=== PATIENT | male | born 1995 | race Caucasian/White ===

== ENCOUNTER 2021-10-18 08:36 | Outpatient (CLI) | payer OTHER, SELFPAY ==
--- NOTE | ~2021-10-18 | NM_ITS ---
EXAMINATION: NM parathyroid w imaging DATE: 10/18/2021 12:35 INDICATION: Hypercalcemia. Elevated parathyroid hormone level. TECHNIQUE: 20.2 mCi Tc99m tetrofosmin (Myoview) was administered by intravenous route. Anterior image s of the neck were obtained at 10 minutes and 2 hours. Additional delayed SPECT images were obtained in axial, sagittal and coronal planes. COMPARISON: None. FINDINGS/IMPRESSION: Small focus of persistent uptake in the superior mediastinum consistent with parathyroid adenoma whic h is located a short distance inferior, lateral and deep to the lower pole of the right thyroid. No o ther suspicious foci of delayed uptake identified. Reviewed, dictated and finalized at location A. /[employer]
== END 2021-10-18 08:37 | disposition home or self-care (01) ==
LOC: ANHIMG 08:43
PROVIDERS: PCP Emergency Medicine; Visit Provider Emergency Medicine
DX: E83.52 Hypercalcemia (principal)
CPT/HCPCS: 78070; A9500

== ENCOUNTER 2022-05-03 23:55 | Emergency (ER) | payer OTHER, SELFPAY ==
[2022-05-04] VITALS: BP 146/77; PULSE 64; RESP 18; TEMP 36.3; O2SAT 100
--- NOTE | 2022-05-04 00:10 | ECG_ITS ---
Measurements Intervals [place] Rate: 64 P: 26 RI: 149 QRS: 53 QRSD: 103 T: 29 QT: 381 QTc: 396 Interpretive Statements SINUS RHYTHM WITH SINUS ARRHYTHMIA BASELINE ARTIFACT- I, AVR, AVL NORMAL ECG Electronically Signed On 05-04-2022 6:58:38 CDT by Angelo Felipe D.O.
--- NOTE | 2022-05-04 01:31 | ED.ARRPALP ---
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 He is nervous that this may be abnormal and have something to with low calcium, even though he did have his calcium levels checked in the last week and was not found to be grossly abnormal. Denies any chest pain, lightheadedness, nausea or vomiting, or any other symptoms, he just feels anxious. Related Data Home Medications Medication Instructions Recorded Confirmed ibuprofen 800 mg tablet mg 05/04/22 Allergies Allergy/AdvReac Type Severity Reaction Status Date / Time No Known Allergies Allergy Verified 05/04/22 01:04 Review of Systems Review of Systems: CONST: No fever. HEENT: Incision healing well C/V: No chest pain RESP: No difficulty breathing GI: No nausea vomiting : No dysuria. M/S: No joint pain. SKIN: No rash. NEURO: Occasional tingling bilateral hands but not currently PSYCH: Anxious PMFSH Surgical History Surgical History (Updated 05/04/22 @ 04:51 by Melanie Sheldon MD) H/O parathyroidectomy Social History Social History (Updated 05/04/22 @ 04:51 by Melanie Sheldon MD) Smoking status: Never smoker Exam Narrative: EXAMINATION OF ORGAN SYSTEMS/BODY AREAS: Constitutional: Vital signs per nursing GENERAL: Resting comfortably in bed, no acute distress HEAD: Normal with no signs of head trauma. EYES: EOMI, conjunctiva normal ENT: Hearing grossly intact LUNGS: Nonlabored breathing. HEART: [Regular rate and rhythm] ABD: No distention EXT: Normal range of motion SKIN: [No rashes or lesions.] NEURO: [Alert and oriented x 3. No gross focal sensory or strength deficits.] PSYCH: Normal affect Course Vital Signs Vital signs: Vital Signs Temperature 97.4 F L 05/04/22 00:00 Pulse Rate 64 05/04/22 00:00 Respiratory Rate 18 05/04/22 00:00 Blood Pressure 146/77 H 05/04/22 00:00 Pulse Oximetry 100 05/04/22 00:00 Oxygen Delivery Room Air 05/04/22 00:00 Temperature 97.4 F L 05/04/22 00:00 Pulse Rate 57 L 05/04/22 01:51 Respiratory Rate 18 05/04/22 01:51 Blood Pressure 130/78 05/04/22 01:51 Pulse Oximetry 99 05/04/22 01:51 Oxygen Delivery Room Air 05/04/22 00:00 MDM - Arrhythmia/Palpitations MDM Narrative Medical decision making narrative: 26-year-old male presenting with concern that his heart rate was too low, vital signs normal here, EKG obtained which is unremarkable, with normal QTC and no signs of hypocalcemia, I have reassured the patient as he is asymptomatic and has a normal calcium and normal EKG, I have low concern for any issues. 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 Patient is agreeable to this, he has follow-up with his doctor next week, he is stable for discharged home. ECG Data EKG #1: Interpretation: EKG - 12-Lead: Performed at 0016. Interpreted by me. [Sinus rhythm]. Rate 64. [Normal] axis. MA-interval [normal]. QRS duration [normal]. QTc [normal]. [No ST segment elevation or depression]. [T-wave normal]. Impression: No EKG evidence of acute ischemia or dysrhythmia. Discharge Plan Discharge Clinical Impression: Anxiety, Normal ECG Patient Disposition: Home, Self-Care Condition: Stable Instructions: Antibiotic Form, Bradycardia (ED) Additional Instruct
[2022-05-04 01:51] VITALS: BP 130/78; PULSE 57; RESP 18; O2SAT 99
== END 2022-05-04 01:52 | disposition home or self-care (01) ==
LOC: ANHED 05-04 01:45
PROVIDERS: Emergency Provider Emergency Medicine; PCP Emergency Medicine
DX: F41.9 Anxiety disorder, unspecified (principal); E89.2 Postprocedural hypoparathyroidism
CPT/HCPCS: 93005; 99283

== ENCOUNTER 2025-03-31 16:50 | Observation (INO) | payer OTHER, SELFPAY ==
[2025-03-31] VITALS (20 sets, daily range): BP systolic 126–146; BP diastolic 71–84; PULSE 94–134; RESP 13–30; TEMP 36.8; O2SAT 81–100; BMI 25.7
--- NOTE | ~2025-03-31 | CT_ITS ---
EXAMINATION: CTA chest PE protocol DATE: 03/31/2025 20:42 CDT INDICATION: Elevated d-dimer TECHNIQUE: Computed tomographic angiography (CTA) of the chest was performed with 100 mL Omnipaque-35 0 intravenous contrast. The dose-length product was 303 mGy-cm. Maximum intensity projection 3D-recon structions of the aorta and other arteries were constructed by the technologist on a separate worksta tion. Examination is somewhat limited secondary to tachypnea and motion artifact from coughing. COMPARISON: None. FINDINGS/OBSERVATIONS: PULMONARY ARTERIES: No filling defect is identified within the main or proximal pulmonary artery. The main pulmonary artery is not enlarged. THORACIC AORTA: No aneurysmal dilatation or dissection is present. The great vessels are intact LUNGS: Small bilateral pleural effusions, left greater than right, with bibasilar atelectasis. No con solidation is appreciated MEDIASTINUM: No morphologically suspicious or pathologically enlarged lymph nodes are identified with in the mediastinum or bilateral axilla. BONES OF THE CHEST: No acute fracture. No significant degenerative disease. No lytic or blastic lesions. HEART: The heart is of normal size, with a small pericardial effusion. IMPRESSION: No pulmonary embolus. No thoracic aortic dissection. Small bilateral pleural effusions, left greater than right, with bibasilar atelectasis, as detailed a lilly. Reviewed, dictated and finalized at location A. IMPRESSION: No pulmonary embolus. No thoracic aortic dissection. Small bilateral pleural effusions, left greater than right, with bibasilar atel ectasis, as detailed above.
--- NOTE | ~2025-03-31 | XR_ITS ---
EXAM/PROCEDURE: XR chest 2V - 04/01/2025 8:05 CDT HISTORY: 29 years old Male with pleural effusions TECHNIQUE: Two view(s) of the chest. COMPARISON: None available. FINDINGS: LUNGS/ PLEURA: No appreciable pneumothorax. Small left pleural effusion. Mild perihilar bronchial wal l thickening suggestive of bronchiolitis. Airspace opacity in the right middle lobe may represent ate lectasis, scarring versus pneumonia in appropriate clinical settings. HEART/ MEDIASTINUM: Heart appears normal in size. BONES: No acute osseous abnormality. OTHER: Visualized upper abdomen is unremarkable. IMPRESSION: 1. Airspace opacity in the right middle lobe may represent atelectasis, scarring versus pneumonia in appropriate clinical settings. Short-term follow-up chest radiograph is recommended after clinical t herapy. 2. Small left pleural effusion. Mild perihilar bronchial wall thickening suggestive of bronchiolitis . Reviewed, dictated and finalized at location A. IMPRESSION: 1. Airspace opacity in the right middle lobe may represent atelectasis, scarri ng versus pneumonia in appropriate clinical settings. Short-term follow-up ches t radiograph is recommended after clinical therapy. 2. Small left pleural effusion. Mild perihilar bronchial wall thickening sugge stive of bronchiolitis.
--- NOTE | ~2025-03-31 | XR_ITS ---
XR chest 2V Ordering provider: Lev Stevenson MD History: 29 years Male with . cough . Comparison: None. FINDINGS: MEDIASTINUM: The cardiac silhouette is slightly enlarged. LUNGS: No effusions or pneumothorax. Opacification in the left lung base seen suggestive of atelectasis versus pneumonia. OTHER: No free air under the diaphragm. IMPRESSION: Left basal atelectasis versus pneumonia. Clinical correlation advised. Reviewed, dictated and finalized at location A.
--- NOTE | 2025-03-31 18:19 | ECG_ITS ---
Test Date: 2025-03-31 19:08:43 Measurements Intervals [place] Rate: 122 P: 34 MD: 144 QRS: 32 QRSD: 108 T: 120 QT: 337 QTc: 481 Interpretive Statements SINUS TACHYCARDIA MINIMAL Q WAVES- INF/HIGH LAT LEADS NONSPECIFIC T-WAVE ABNORMALITY- INF/LAT LEADS BASELINE ARTIFACT- I, II, III, AVR, AVL, AVF, V6 ABNORMAL ECG No previous ECG available for comparison Electronically Signed On 03-31-2025 20:52:14 CDT by Angelo Felipe D.O.
--- NOTE | 2025-03-31 18:20 | ED_ITS ---
HPI - Recheck/Abnormal Lab/Rx General Chief Complaint: Recheck/Abnormal Lab/Rx <Stephanie Marshall PA-C - Last Filed: 04/01/25 01:46> Stated Complaint: abnormal cxr <Stephanie Marshall PA-C - Last Filed: 04/01/25 01:46> Time Seen by Provider: 03/31/25 18:02 <Stephanie Marshall PA-C - Last Filed: 04/01/25 01:46> History of Present Illness HPI narrative: 29-year-old male with a reported history of asthma, allergies, anxiety, parathyroidectomy in 2021 presents to the emergency department for cough and shortness of breath for the past several weeks. Patient states he struggles with asthma and allergies this time of year. States he has had a cough which is been intermittently productive and shortness of breath for the past several weeks. Over the weekend he stated [place] a cabin which she believes made his symptoms worsen then developed a fever with a T-max of a 100.3? 3 days ago. He went to urgent care 2 days ago and was started on a Z-Charly and prednisone for presumed bronchitis. States he took a 2nd dose of steroids and Z-Charly prior to arrival. Their x-ray machine was not working at the times he was advised to return today for an x-ray and was told that his heart looked mildly enlarged with possible fluid in his lungs and was advised to come to the ER for further evaluation. The patient denies any lower extremity edema. He is endorsing some shortness of breath. He has been using his albuterol inhaler and DuoNebs with improvement. He states his fever and body aches have resolved since starting the antibiotics and steroids. He denies any hemoptysis, recent surgeries or hospitalizations, history of VTE. Patient admits that he is very anxious after receiving the chest x-ray results. Denies alcohol or drug use. <Stephanie Marshall PA-C - Last Filed: 04/01/25 01:46> Related Data Home Medications: Home Medications ?Medication ?Instructions ?Recorded ?Confirmed ?Last Taken ?Type albuterol sulfate 90 mcg/actuation 2 inh inhalation Q6H PRN shortness 04/01/25 04/01/25 04/01/25 History aerosol inhaler of breath or wheezing azithromycin 250 mg tablet 250 mg PO DAILY 04/01/25 04/01/25 04/01/25 History prednisone 20 mg tablet 40 mg PO DAILY 04/01/25 04/01/25 04/01/25 History <Stephanie Marshall PA-C - Last Filed: 04/01/25 01:46> Allergies/Adverse Reactions: Allergies Allergy/AdvReac Type Severity Reaction Status Date / Time No Known Allergies Allergy Verified 03/31/25 18:08 <Stephanie Marshall PA-C - Last Filed: 04/01/25 01:46> Review of Systems 2 Review of Systems: All systems reviewed & are unremarkable except as noted in HPI and below <Stephanie Marshall PA-C - Last Filed: 04/01/25 01:46> PMFSH Past Medical History Medical History: Medical History Asthma <Stephanie Marshall PA-C - Last Filed: 04/01/25 01:46> Surgical History Surgical History: Surgical History H/O parathyroidectomy <Stephanie Marshall PA-C - Last Filed: 04/01/25 01:46> Social History Social History: Social History Smoking status: Never smoker Alcohol intake: current Substance use: never Do You Feel Safe in your Home?: Yes Lack of Transportation: No Lack of Food: Never True Current Housing: I Have Housing Concerned About Future Housing: No Difficulty Paying Gas/Electric Bills: No Difficulty Paying for Meds: No Currently Unemployed: No Education: Bachelor's Degree Difficulty w/ Childcare or Family Care: No Spiritual care concerns: No <Stephanie Marshall PA-C - Last Filed: 04/01/25 01:46> Exam 2 Narrative: GENERAL: Well-appearing, well-nourished, and in no acute distress. Anxious appearing HEAD: Normocephalic, atraumatic. EYES: EOMI. ENT: Nares clear, no rhinorrhea or epistaxis. Mucous membranes moist. NECK: Supple. CHEST: Clear to auscultation. No respiratory distress. Coughing on exam HEART: Tachycardic, regular rhythm. No murmur heard. Normal peripheral pulses. ABDOMEN: Soft, nontender, nondistended, normal active bowel sounds. EXTREMITIES: Normal range of motion. No edema. Negative Homans bilaterally SKIN: Warm, dry, no rash. NEURO: No focal deficits. Alert and oriented x3 <Stephanie Marshall PA-C - Last Filed: 04/01/25 01:46> Course [employer] ENGINEER/PA Physician Supervision PA discussed patient with me. Reasonable for either outpatient follow up versus offering admission though would favor / encourage admission given elevated BNP and persistent tachycardia. Dimer elevated but no evidence PE on imaging. Advised obtaining TSH. Shared decision making between PA and patient regarding admission and I was told that patient had opted to be admitted and hospitalist accepted. In this way was available for consultation patient was in the emergency department did review results of patient's imaging some labs as vital signs which showed that he had a variable heart rate in the 100s but at times 110s, occasionally low 120s. It appeared variable but otherwise sinus and likely sinus arrhythmia due to respiratory variation. I did not personally evaluate this patient at bedside however. <Aleksandra Merlos MD - Last Filed: 04/01/25 11:55> Vital Signs Vital signs: Vital Signs Temperature 98.2 F 03/31/25 16:52 Pulse Rate 113 H 03/31/25 16:52 Respiratory Rate 20 03/31/25 16:52 Blood Pressure 126/79 03/31/25 16:52 Pulse Oximetry 100 03/31/25 16:52 Oxygen Delivery Room Air 03/31/25 16:52 Temperature 97.6 F 04/01/25 08:00 Pulse Rate 97 04/01/25 08:00 Respiratory Rate 18 04/01/25 08:00 Blood Pressure 133/70 04/01/25 08:00 Pulse Oximetry 95 04/01/25 08:00 Oxygen Delivery Room Air 04/01/25 00:08 <Stephanie Marshall PA-C - Last Filed: 04/01/25 01:46> Vital Signs Temperature 98.2 F 03/31/25 16:52 Pulse Rate 113 H 03/31/25 16:52 Respiratory Rate 20 03/31/25 16:52 Blood Pressure 126/79 03/31/25 16:52 Pulse Oximetry 100 03/31/25 16:52 Oxygen Delivery Room Air 03/31/25 16:52 Temperature 97.6 F 04/01/25 08:00 Pulse Rate 97 04/01/25 08:00 Respiratory Rate 18 04/01/25 08:00 Blood Pressure 133/70 04/01/25 08:00 Pulse Oximetry 95 04/01/25 08:00 Oxygen Delivery Room Air 04/01/25 00:08 <Aleksandra Merlos MD - Last Filed: 04/01/25 11:55> MDM - Recheck/Abnormal Lab/Rx MDM Narrative Medical decision making narrative: 29-year-old male with a reported history of allergies and asthma presents to the emergency department for cough and shortness of breath for several weeks. He went to urgent care and had an x-ray which reportedly showed a enlarged heart and fluid on his lungs. On arrival patient is tachycardic at 130 on my evaluation and is anxious appearing. He is coughing on exam but is lung sounds are otherwise clear. He does not appear volume overloaded. Given persistent tachycardia and reported abnormal chest x-ray, will obtain lab work, repeat chest x-ray, BNP and D-dimer. Patient was given a DuoNeb, however he does not have any wheezing on exam. He is given IV fluids and Ativan. Lab work is remarkable for leukocytosis of 15.6. Hemoglobin is 11.9 with no prior for comparison. Platelets are mildly elevated at 408. Chemistries show elevated BUN of 23, otherwise largely unremarkable. EKG shows sinus tachycardia rate of 122 ppm, normal TX interval, normal QRS duration, borderline elevated QTC of 481, no ST elevations or depressions. His troponin is undetectable. Chest x-ray shows left basilar atelectasis versus pneumonia. His BNP is elevated at 1220 with an elevated D-dimer 5.13. Will obtain CTA chest PE. IMPRESSION: No pulmonary embolus. No thoracic aortic dissection. Small bilateral pleural effusions, left greater than right, with bibasilar atelectasis, as detailed above. Patient was given 2L IV fluids an a dose of Rocephin and doxycycline for presumed CAP on arrival to the ED. he was also given Ativan for anxiety. He remains tachycardia 110bpm. I discussed findings with the patient. I discussed uncertain etiology of elevated BNP and pleural effusions. Shared decision making regarding disposition. Patient agrees to admission to obtain an echocardiogram for evaluation of possible underlying cardiomyopathy versus valvular dysfunction versus other. Discussed with hospitalist CITRI[employer] ENGINEER, David, who agrees to admission. <Stephanie Marshall PA-C - Last Filed: 04/01/25 01:46> Lab Data Result diagrams: 04/01/25 05:11 04/01/25 05:11 <Stephanie Marshall PA-C - Last Filed: 04/01/25 01:46> Labs: Lab Results 03/31/25 03/31/25 03/31/25 Range/Units 18:26 19:57 21:40 WBC 15.6 H (4.5-10.0) K/mm3 RBC 3.96 L (4.6-6.20) M/mm3 Hgb 11.9 L (14.0-18.0) g/dL Hct 35.8 L (42.0-52.0) % MCV 90.4 (80-100) fl MCH 30.1 (26-34) pg MCHC 33.2 (32-36) g/dl RDW 12.2 (11.5-14.5) % Plt Count 408 H (150-375) k/mm3 MPV 9.3 (7.4-10.4) fl Immature Gran % (Auto) 0.8 H (0-0.5) % Neut % (Auto) 79.8 H (45.5-73.1) % Lymph % (Auto) 10.6 L (18.3-44.2) % Stearns % (Auto) 8.7 H (2.6-8.5) % Eos % (Auto) 0.0 (0-4.4) % Baso % (Auto) 0.1 L (0.2-1.2) % Lymph # (Auto) 1.65 (0.9-3.2) K/mm3 Stearns # (Auto) 1.4 H (0.1-0.6) K/mm3 Eos # (Auto) 0.0 (0-0.3) K/mm3 Baso # (Auto) 0.0 (0.0-0.1) K/mm3 Abs Immat Gran (auto) 0.12 H (0.00-0.031) K/mm3 Absolute Neuts (auto) 12.5 H (1.3-6.7) K/mm3 Absolute Nucleated RBC 0.000 (0.0-0.012) K/mm3 Nucleated RBC % 0.0 (0.0-0.2) % ESR 73 H (0-20) mm/hr PT 15.3 H (11.1-14.7) Seconds INR 1.2 APTT 30.8 (22.3-36.8) Seconds D-Dimer 5.13 H (<0.48) ug/mL Sodium 142 (137-145) mmol/L Potassium 4.1 (3.4-5.0) mmol/L Chloride 109 H (98-107) mmol/L Carbon Dioxide 22 (22-30) mmol/L Anion Gap 11 (4-12) mmol/L BUN 23 H (9-20) mg/dL Creatinine 1.10 (0.7-1.3) mg/dL Estim Creat Clear Calc 91 ml/min Estimated GFR > 60 (59 - ) Glucose 118 H (65-110) mg/dL Lactic Acid 1.0 (0.7-2.0) mmol/L Calcium 9.1 (8.4-10.2) mg/dL Magnesium 2.1 (1.6-2.3) mg/dL Total Bilirubin 0.4 (0.2-1.3) mg/dL AST 44 (17-59) U/L ALT 55 H (6-50) U/L Alkaline Phosphatase 105 (38-126) U/L Troponin I < 0.012 (0.000-0.034) ng/mL C-Reactive Protein 35.1 H (<1.0) mg/dL NT-Pro-B Natriuret Pep 1220 H (19.9-100) pg/mL Total Protein 7.7 (6.3-8.2) g/dL Albumin 3.9 (3.5-5.1) g/dL Procalcitonin 0.4 ng/mL TSH (Reflex) 0.443 L (0.465-4.68) uIU/mL Free T4 1.85 (0.78-2.19) ng/dL Total T3 0.90 (0.82-1.58) NG/ML Urine Color Yellow (Yellow) Urine Appearance Clear (Clear) Urine pH 6.5 (5.0-9.0) Ur Specific [employer] > 1.045 H (1.001-1.035) Urine Protein Trace (Negative) mg/dL Urine Glucose (UA) Negative (Negative) mg/dL Urine Ketones Negative (Negative) mg/dL Ur Blood (Man) Negative (Negative) Urine Nitrate Negative (Negative) Urine Bilirubin Negative (Negative) Urine Urobilinogen 0.2 (<2.0) mg/dL Leukocyte Esterase Rfl Negative (Negative) SARAH/UL Urine RBC 0-2 (0-2) /hpf Urine WBC 0-5 (0-3) /hpf Ur Squamous Epith Cells None seen (Few) /hpf Urine Bacteria None seen /hpf Urine Casts 0-2 <Stephanie Marshall PA-C - Last Filed: 04/01/25 01:46> Lab Results 03/31/25 03/31/25 03/31/25 Range/Units 18:26 19:57 21:40 WBC 15.6 H (4.5-10.0) K/mm3 RBC 3.96 L (4.6-6.20) M/mm3 Hgb 11.9 L (14.0-18.0) g/dL Hct 35.8 L (42.0-52.0) % MCV 90.4 (80-100) fl MCH 30.1 (26-34) pg MCHC 33.2 (32-36) g/dl RDW 12.2 (11.5-14.5) % Plt Count 408 H (150-375) k/mm3 MPV 9.3 (7.4-10.4) fl Immature Gran % (Auto) 0.8 H (0-0.5) % Neut % (Auto) 79.8 H (45.5-73.1) % Lymph % (Auto) 10.6 L (18.3-44.2) % Ste[place]s % (Auto) 8.7 H (2.6-8.5) % Eos % (Auto) 0.0 (0-4.4) % Baso % (Auto) 0.1 L (0.2-1.2) % Lymph # (Auto) 1.65 (0.9-3.2) K/mm3 [place] # (Auto) 1.4 H (0.1-0.6) K/mm3 Eos # (Auto) 0.0 (0-0.3) K/mm3 Baso # (Auto) 0.0 (0.0-0.1) K/mm3 Abs Immat Gran (auto) 0.12 H (0.00-0.031) K/mm3 Absolute Neuts (auto) 12.5 H (1.3-6.7) K/mm3 Absolute Nucleated RBC 0.000 (0.0-0.012) K/mm3 Nucleated RBC % 0.0 (0.0-0.2) % ESR 73 H (0-20) mm/hr PT 15.3 H (11.1-14.7) Seconds INR 1.2 APTT 30.8 (22.3-36.8) Seconds D-Dimer 5.13 H (<0.48) ug/mL Sodium 142 (137-145) mmol/L Potassium 4.1 (3.4-5.0) mmol/L Chloride 109 H (98-107) mmol/L Carbon Dioxide 22 (22-30) mmol/L Anion Gap 11 (4-12) mmol/L BUN 23 H (9-20) mg/dL Creatinine 1.10 (0.7-1.3) mg/dL Estim Creat Clear Calc 91 ml/min Estimated GFR > 60 (59 - ) Glucose 118 H (65-110) mg/dL Lactic Acid 1.0 (0.7-2.0) mmol/L Calcium 9.1 (8.4-10.2) mg/dL Magnesium 2.1 (1.6-2.3) mg/dL Total Bilirubin 0.4 (0.2-1.3) mg/dL AST 44 (17-59) U/L ALT 55 H (6-50) U/L Alkaline Phosphatase 105 (38-126) U/L Troponin I < 0.012 (0.000-0.034) ng/mL C-Reactive Protein 35.1 H (<1.0) mg/dL NT-Pro-B Natriuret Pep 1220 H (19.9-100) pg/mL Total Protein 7.7 (6.3-8.2) g/dL Albumin 3.9 (3.5-5.1) g/dL Procalcitonin 0.4 ng/mL TSH (Reflex) 0.443 L (0.465-4.68) uIU/mL Free T4 1.85 (0.78-2.19) ng/dL Total T3 0.90 (0.82-1.58) NG/ML Urine Color Yellow (Yellow) Urine Appearance Clear (Clear) Urine pH 6.5 (5.0-9.0) Ur Specific [employer] > 1.045 H (1.001-1.035) Urine Protein Trace (Negative) mg/dL Urine Glucose (UA) Negative (Negative) mg/dL Urine Ketones Negative (Negative) mg/dL Ur Blood (Man) Negative (Negative) Urine Nitrate Negative (Negative) Urine Bilirubin Negative (Negative) Urine Urobilinogen 0.2 (<2.0) mg/dL Leukocyte Esterase Rfl Negative (Negative) SARAH/UL Urine RBC 0-2 (0-2) /hpf Urine WBC 0-5 (0-3) /hpf Ur Squamous Epith Cells None seen (Few) /hpf Urine Bacteria None seen /hpf Urine Casts 0-2 <Aleksandra Merlos MD - Last Filed: 04/01/25 11:55> Discharge Plan Discharge Clinical Impression: Elevated brain natriuretic peptide (BNP) level, Pleural effusion <Stephanie Marshall PA-C - Last Filed: 04/01/25 01:46> Patient Disposition: Still a Patient <Stephanie Marshall PA-C - Last Filed: 04/01/25 01:46> Condition: Stable <Stephanie Marshall PA-C - Last Filed: 04/01/25 01:46>
[2025-03-31] MEDS: SODIUM CHLORIDE 0.9% IV 1,000 ML 999 ML IV CONT ×2 (18:32→19:03)
[2025-03-31] MEDS: LORazepam INJ (*CRX) 2 MG/ML VIAL 0.5 MG IV PUSH (18:33)
[2025-03-31] MEDS: IPRATROPIUM 0.5 MG/ALBUTEROL SULFATE 2.5 MG AMPUL.NEB 3 ML INHALATION (18:36)
[2025-03-31 18:40] LABS: Basophils Percent Auto 0.1 % (0.2-1.2); Hematocrit 35.8 % (42.0-52.0); Hemoglobin 11.9 g/dL (14.0-18.0); Immature Granulocyte Absolute 0.12 K/mm3 (0.00-0.031); Immature Granulocyte Percent A 0.8 % (0-0.5); Lymphocytes Absolute Auto 1.65 K/mm3 (0.9-3.2); Lymphocytes Percent Auto 10.6 % (18.3-44.2); Mean Corpuscular HGB Conc 33.2 g/dl (32-36); Mean Corpuscular Hemoglobin 30.1 pg (26-34); Mean Corpuscular Volume 90.4 fl (80-100); Mean Platelet Volume 9.3 fl (7.4-10.4); Monocytes Absolute Auto 1.4 K/mm3 (0.1-0.6); Monocytes Percent Auto 8.7 % (2.6-8.5); Neutrophils Absolute Auto 12.5 K/mm3 (1.3-6.7); Neutrophils Percent Auto 79.8 % (45.5-73.1); Platelet Count Result 408 k/mm3 (150-375); Red Blood Count 3.96 M/mm3 (4.6-6.20); Red Cell Distribution Width 12.2 % (11.5-14.5); White Blood Count 15.6 K/mm3 (4.5-10.0)
[2025-03-31 18:45] LABS: Alanine Aminotransferase 55 U/L (6-50); Albumin Level 3.9 g/dL (3.5-5.1); Alkaline Phosphatase 105 U/L (38-126); Anion Gap 11 mmol/L (4-12); Aspartate Amino Transferase 44 U/L (17-59); Bilirubin,Total 0.4 mg/dL (0.2-1.3); Blood Urea Nitrogen 23 mg/dL (9-20); Calcium 9.1 mg/dL (8.4-10.2); Carbon Dioxide 22 mmol/L (22-30); Chloride 109 mmol/L (98-107); Estimated CRCL calculation 91 ml/min; Estimated Glomerular Filt Rate > 60; Glucose 118 mg/dL (65-110); Magnesium 2.1 mg/dL (1.6-2.3); Potassium 4.1 mmol/L (3.4-5.0); Sodium 142 mmol/L (137-145); Total Protein 7.7 g/dL (6.3-8.2)
[2025-03-31 18:50] LABS: INR 1.2; Prothrombin Time 15.3 Seconds (11.1-14.7)
[2025-03-31 18:51] LABS: Partial Thromboplastin Time 30.8 Seconds (22.3-36.8)
[2025-03-31 18:56] LABS: NT Pro B Type Natriuretic Pept 1220 pg/mL (19.9-100); Troponin I < 0.012 ng/mL (0.000-0.034)
[2025-03-31 19:16] LABS: D Dimer 5.13 ug/mL (<0.48)
[2025-03-31 19:49] LABS: Erythrocyte Sedimentation Rate 73 mm/hr (0-20)
[2025-03-31] MEDS: DOXYCYCLINE 100 MG/NS 100 ML 100 MG/100 ML BAG IVPB (20:04)
[2025-03-31] MEDS: BENZONATATE 100 MG CAPSULE 200 MG PO (20:35)
[2025-03-31 21:03] LABS: CRP 35.1 mg/dL (<1.0)
[2025-03-31 21:52] LABS: Add Urine Microscopic? YES; Appearance Urine Clear (Clear); Bacteria Urine None Seen /hpf; Bilirubin Urine Negative (Negative); Blood Urine Negative (Negative); Color Urine Yellow (Yellow); Glucose Urine UA Negative (Negative); Ketones Urine Negative (Negative); Leukocyte Esterase Ur Negative LEU/UL (Negative); Nitrate Urine Negative (Negative); Non Pathogenic Casts 0-2; Protein Urine Trace mg/dL (Negative); RBC Urine 0-2 /hpf (0-2); Specific Grav Ur > 1.045 (1.001-1.035); Squamous Epithelial Cell Urine None Seen /hpf (Few); Urobilinogen Urine 0.2 mg/dL (<2.0); WBC Urine 0-5 /hpf (0-3); pH Urine 6.5 (5.0-9.0)
[2025-03-31 22:12] LABS: Thyroid Stimulating Hormone Reflex 0.443 uIU/mL (0.465-4.68)
[2025-03-31 23:36] LABS: Procalcitonin 0.4 ng/mL
[2025-03-31 23:44] LABS: Free T4 Free Thyroxine Reflex 1.85 ng/dL (0.78-2.19)
--- NOTE | 2025-03-31 23:46 | ADMGEN ---
This patient, Surya Terry, was admitted to Medical Room 245-. Patient/family oriented to hospital policies and general routines including ID bracelet, bed and alarms, visiting hours, pain management, procedures, bathroom and other care routines, personal items, smoking policy, room service/diet, and visiting hours. Information on how to activate the Rapid Response Team has been discussed. Patient/Family are encouraged to report perceived risks to care and to ask questions if they do not understand what they are told or what they should do.
[2025-04-01] VITALS: BP 136/77; PULSE 96; RESP 16; TEMP 36.6; O2SAT 100
--- NOTE | 2025-04-01 | ECHO_ITS ---
Patient Info Name: Surya Terry Age: 29 years : 1995 Gender: Male Ht: 70 in Wt: 179 lbs BSA: 2.01 m2 HR: 78 bpm BP: 136 / 77 mmHg Technical Quality: Good Exam Date: 04/01/2025 10:22 AM Patient Status: I Admit Date: 03/31/2025 Exam Type: CA echo doppler color flow Complete two-dimensional, color flow and Doppler transthoracic echocardiogram is performed. Staff Referring Physician: Kirk Silva Collection Systems Consultant: Ysabel Galvan Attending Provider: Kadeem Rosen Summary 1. Complete two-dimensional, color flow and Doppler transthoracic echocardiogram is performed. 2. Left ventricular chamber dimension is mildly enlarged. 3. Left ventricular systolic function is normal, estimated at 55-60. 4. The left ventricular diastolic function is normal. 5. E/e' 4 is not elevated. 6. Left atrial chamber dimension is mildly enlarged. 7. Right atrial chamber dimension is mildly enlarged. 8. There is mild mitral valve regurgitation. 9. There is mild tricuspid valve regurgitation. 10. No pulmonary hypertension, estimated pulmonary arterial systolic pressure is 37 mmHg. 11. Dilated inferior vena cava with >50% collapse upon inspiration consistent with elevated right atrial pressure, 10 mmHg. 12. There is trivial pericardial effusion. Left Ventricle E/e' 4 is not elevated. Left ventricular chamber dimension is mildly enlarged. Left ventricular systolic function is normal, estimated at 55-60. The left ventricular diastolic function is normal. Right Ventricle Right ventricular chamber dimension is normal. Right ventricular systolic function is normal and with normal TAPSE 2.1 cm. Left Atria Left atrial chamber dimension is mildly enlarged. Right Atria Right atrial chamber dimension is mildly enlarged. Aortic Valve The aortic valve is trileaflet. There is no aortic valve stenosis. There is no aortic valve regurgitation. Pulmonic Valve There is no pulmonic regurgitation. Mitral Valve There is no mitral valve stenosis. There is mild mitral valve regurgitation. Tricuspid Valve There is mild tricuspid valve regurgitation. No pulmonary hypertension, estimated pulmonary arterial systolic pressure is 37 mmHg. Pericardium/Pleural There is trivial pericardial effusion. Inferior Vena Cava Dilated inferior vena cava with >50% collapse upon inspiration consistent with elevated right atrial pressure, 10 mmHg. Aorta The aortic root size at the sinus of Valsalva is normal. Left Ventricular Outflow Tract Name Value Normal LVOT 2D LVOT Diameter 2.2 cm LVOT Doppler LVOT Peak Velocity 121 cm/s LVOT Peak Gradient 6 mmHg LVOT Mean Gradient 4 mmHg LVOT VTI 23 cm LVOT VTI/AV VTI Ratio 1.1 LVOT Stroke Volume 92 ml LVOT CO 10.2 l/min LVOT CI 5.1 l/min/m2 Pulmonic Valve Name Value Normal PV Doppler PV Peak Velocity 90 cm/s PV Peak Gradient 3 mmHg Mitral Valve Name Value Normal MV Doppler MV Peak Gradient 4 mmHg MV Mean Gradient 2 mmHg MV Area (Cont Eq VTI) 4.7 cm2 MV Regurgitation Doppler MR Peak Gradient 109 mmHg MV Diastolic Function MV E Peak Velocity 86 cm/s MV A Peak Velocity 53 cm/s MV E/A 1.6 MV Decel Time (PW) 120 ms MV Annular TDI MV E/e' (Septal) 5.2 MV E/e' (Lateral) 4.2 MV E/e' (Average) 4.7 Tricuspid Valve Name Value Normal TV Regurgitation Doppler TR Peak Velocity 259 cm/s TR Peak Gradient 27 mmHg Estimated PAP/RSVP RA Pressure 10 mmHg <=5 PA Systolic Pressure 37 mmHg <36 RV Systolic Pressure 37 mmHg <36 TV Annular TDI TV Lateral Romy s' Velocity 9.4 cm/s >=9.5 Aortic Valve Name Value Normal AV Doppler AV Peak Velocity 118 cm/s AV Peak Gradient 6 mmHg AV Mean Gradient 3 mmHg AV VTI 22 cm AV Area (Cont Eq VTI) 4.2 cm2 >=3.0 AV Area (Cont Eq Clarence) 4.1 cm2 AV DI (Clarence) 1.02 AV Regurgitation 2D LVOT Area 4.0 cm2 Ventricles Name Value Normal LV Dimensions 2D/MM IVS Diastolic Thickness (2D) 0.9 cm 0.6-1.0 LVID Diastole (2D) 5.6 cm 4.2-5.8 LVIW Diastolic Thickness (2D) 1.0 cm 0.6-1.0 LVID Systole (2D) 4.1 cm 2.5-4.0 LVOT Diameter 2.2 cm LV Mass (2D Cubed) 212.07 g 88.00-224.00 LV Mass Index (2D Cubed) 105 g/m2 49-115 Relative Wall Thickness (2D) 0.37 <=0.42 LV Fractional Shortening/Ejection Fraction 2D/MM LV Fractional Shortening (2D) 27 % 25-43 LV EF (2D Teichholz) 51 % LV Diastolic Volume (4C MOD) 123 ml LV EF (4C MOD) 53 % LV Diastolic Volume (2C MOD) 136 ml LV EF (2C MOD) 52 % LV Diastolic Volume (BP MOD) 132 ml 62-150 LV Diastolic Volume Index (BP MOD) 66 ml/m2 34-74 LV Systolic Volume (BP MOD) 64 ml 21-61 LV Systolic Volume Index (BP MOD) 32 ml/m2 11-31 LV EF (BP MOD) 52 % 52-72 LV Diastolic Length (4C) 8.5 cm LV Systolic Length (4C) 7.0 cm LV Stroke Volume (4C MOD) 65 ml Atria Name Value Normal LA Dimensions LA Volume (4C A-L) 71 ml LA Volume (BP A-L) 77 ml RA Dimensions RA Systolic [place] Length (4C) 5.1 cm 2.1-2.7 RA Area (4C) 19.6 cm2 <=18.0 Report Signatures
[2025-04-01 00:04] VITALS: PULSE 112
[2025-04-01 04:00] VITALS: PULSE 78
[2025-04-01 05:53] LABS: Basophils Absolute Auto 0.1 K/mm3 (0.0-0.1); Basophils Percent Auto 0.6 % (0.2-1.2); Eosinophils Absolute Auto 0.1 K/mm3 (0-0.3); Eosinophils Percent Auto 1.1 % (0-4.4); Hematocrit 31.8 % (42.0-52.0); Hemoglobin 10.3 g/dL (14.0-18.0); Immature Granulocyte Absolute 0.08 K/mm3 (0.00-0.031); Immature Granulocyte Percent A 0.7 % (0-0.5); Lymphocytes Absolute Auto 2.59 K/mm3 (0.9-3.2); Mean Corpuscular HGB Conc 32.4 g/dl (32-36); Mean Corpuscular Hemoglobin 29.8 pg (26-34); Mean Corpuscular Volume 91.9 fl (80-100); Mean Platelet Volume 9.6 fl (7.4-10.4); Monocytes Absolute Auto 1.1 K/mm3 (0.1-0.6); Monocytes Percent Auto 10.3 % (2.6-8.5); Neutrophils Absolute Auto 6.8 K/mm3 (1.3-6.7); Neutrophils Percent Auto 63.3 % (45.5-73.1); Platelet Count Result 355 k/mm3 (150-375); Red Blood Count 3.46 M/mm3 (4.6-6.20); Red Cell Distribution Width 12.4 % (11.5-14.5); White Blood Count 10.8 K/mm3 (4.5-10.0)
[2025-04-01 06:37] LABS: Procalcitonin 0.4 ng/mL
--- NOTE | 2025-04-01 06:50 | PM.IMHP ---
H&P: HPI History of Present Illness Date/Time: 04/01/25 06:50 Chief Complaint: shortness of breath Narrative: 29 year old male with past medical history of asthma, allergies, anxiety, and parathyroidectomy in 2021 presents to the hospital for cough and shortness of breath. ED workup: CBC with WBC 15.6, H/H 11.9/35.8, and PLT 408. PT/INR 15.3/1.2. CMP with Na 142, K 4.1, CO2 22, BUN/Cr 23/1.1. Lactic acid and procal WNL. CRP 35.1 and sedimentation 129. Troponin WNL. UA unremarkable. Chest XR showed left basal atelectasis vs pneumonia. Chest CTA showed no PE or thoracic aortic dissection, small bilateral pleural effusion, left greater than right with bibasilar atelectasis. Review of Systems Review of Systems: All systems reviewed & are unremarkable except as noted in HPI and below PMFSH Past Medical History Medical History (Updated 04/01/25 @ 07:05 by Laila Villalobos PA-C) Asthma Surgical History Surgical History H/O parathyroidectomy Social History Social History Smoking status: Never smoker Alcohol intake: current Substance use: never Do You Feel Safe in your Home?: Yes Lack of Transportation: No Lack of Food: Never True Current Housing: I Have Housing Concerned About Future Housing: No Difficulty Paying Gas/Electric Bills: No Difficulty Paying for Meds: No Currently Unemployed: No Education: Bachelor's Degree Difficulty w/ Childcare or Family Care: No Spiritual care concerns: No Meds Home Medications and Allergies Home Medications ?Medication ?Instructions ?Recorded ?Confirmed ?Type albuterol sulfate 90 mcg/actuation 2 inh inhalation Q6H PRN shortness 04/01/25 04/01/25 History aerosol inhaler of breath or wheezing azithromycin 250 mg tablet 250 mg PO DAILY 04/01/25 04/01/25 History prednisone 20 mg tablet 40 mg PO DAILY 04/01/25 04/01/25 History Allergies Allergy/AdvReac Type Severity Reaction Status Date / Time No Known Allergies Allergy Verified 03/31/25 18:08 Vital Signs Vital Signs - 24 hr 03/31/25 16:52 03/31/25 18:07 03/31/25 18:15 Temperature 98.2 F Pulse Rate 113 H 128 H 124 H Respiratory Rate 20 20 22 H Blood Pressure 126/79 Pulse Oximetry 100 98 Oxygen Delivery Room Air 03/31/25 18:30 03/31/25 18:36 03/31/25 18:45 Temperature Pulse Rate 111 H 116 H 105 H Respiratory Rate 22 H 30 H 17 Blood Pressure Pulse Oximetry 96 99 Oxygen Delivery 03/31/25 18:47 03/31/25 19:00 03/31/25 19:30 Temperature Pulse Rate 113 H 116 H 134 H Respiratory Rate 22 H 25 H 23 H Blood Pressure Pulse Oximetry 95 81 L Oxygen Delivery 03/31/25 20:17 03/31/25 20:32 03/31/25 20:39 Temperature Pulse Rate 122 H 117 H Respiratory Rate 21 H 23 H Blood Pressure 136/72 Pulse Oximetry 99 98 97 Oxygen Delivery 03/31/25 20:45 03/31/25 21:00 03/31/25 21:01 Temperature Pulse Rate 123 H 112 H 115 H Respiratory Rate 25 H 13 14 Blood Pressure 136/81 Pulse Oximetry 96 99 98 Oxygen Delivery 03/31/25 21:15 03/31/25 21:30 03/31/25 21:40 Temperature Pulse Rate 117 H 112 H 112 H Respiratory Rate 26 H 22 H 23 H Blood Pressure 131/84 141/71 H Pulse Oximetry 97 96 98 Oxygen Delivery 03/31/25 21:45 03/31/25 22:00 04/01/25 00:00 Temperature 97.9 F Pulse Rate 125 H 94 96 Respiratory Rate 26 H 19 16 Blood Pressure 146/79 H 136/77 Pulse Oximetry 99 97 100 Oxygen Delivery 04/01/25 00:04 04/01/25 00:08 04/01/25 04:00 Temperature Pulse Rate 112 H 78 Respiratory Rate Blood Pressure Pulse Oximetry Oxygen Delivery Room Air Exam Narrative: AF General: well nourished, well-developed male in no acute respiratory distress who is nontoxic appearing, lying semi recumbent in bed. HEENT: Normocephalic. Atraumatic. Pupils equal round reactive to light. Extraocular movement intact. Sclera clear and anicteric. Nares patent. No oral lesions. Moist mucous membranes. Tongue is midline. Palate sharee symmetrically. No facial asymmetry. Neck: Neck was supple. No dominant adenopathy, thyromegaly or masses. 2+ carotid upstrokes without bruits. Chest: Lungs are clear to auscultation bilaterlly. No wheezes or crackles. CV: Heart was regular rate and rhythm. S1/S2. No murmurs, gallops, or rubs. Abd: Abdomen was soft. Nontender. Nondistended. Postive bowel sounds. No organomegaly or masses. Ext: No clubbing, cyanosis, or edema. 2+ DP pulses bilaterally. Neuro: Patient is alert and oriented x4. Strenth is 5/5 in both upper and lower extremities. Cranial nerves 2-12 are intact. Speech is clear. Psych: Normal nood and affect. Patient is pleasant and cooperative. Skin: Warm and dry. No rashes noted. H&P: Results Labs Labs: Short CBC 03/31/25 04/01/25 Range/Units 18:26 05:11 WBC 15.6 H 10.8 H (4.5-10.0) K/mm3 Hgb 11.9 L 10.3 L (14.0-18.0) g/dL Hct 35.8 L 31.8 L (42.0-52.0) % Plt Count 408 H 355 (150-375) k/mm3 BMP 03/31/25 18:26 Sodium 142 Potassium 4.1 Chloride 109 H Carbon Dioxide 22 BUN 23 H Creatinine 1.10 Glucose 118 H Calcium 9.1 Cardiac Enzymes 03/31/25 Range/Units 18:26 Troponin I < 0.012 (0.000-0.034) ng/mL Liver Function 03/31/25 Range/Units 18:26 Total Bilirubin 0.4 (0.2-1.3) mg/dL AST 44 (17-59) U/L ALT 55 H (6-50) U/L Alkaline Phosphatase 105 (38-126) U/L Albumin 3.9 (3.5-5.1) g/dL Urine 03/31/25 Range/Units 21:40 Urine Color Yellow (Yellow) Urine Appearance Clear (Clear) Urine pH 6.5 (5.0-9.0) Ur Specific [place] > 1.045 H (1.001-1.035) Urine Protein Trace (Negative) mg/dL Urine Glucose (UA) Negative (Negative) mg/dL Assessment and Plan Assessment and plan (1) Pleural effusion: Code(s): J90 - Pleural effusion, not elsewhere classified Status: Acute Assessment and Plan: - Symptoms: - Current medications: - BNP: 1220 > 995 - EKG: sinus tachycardia - Chest XR showed left basal atelectasis vs pneumonia. - Chest CTA showed no PE or thoracic aortic dissection, small bilateral pleural effusion, left greater than right with bibasilar atelectasis. - Echo ordered - Monitor vital signs, I&Os, BUN/creatinine, daily weights, neuro status and patient is a fall risk - Monitor serum electrolytes, Keep serum Potassium>4 and serum Magnesium>2 and CBC
[2025-04-01 06:54] LABS: Alanine Aminotransferase 44 U/L (6-50); Albumin Level 3.1 g/dL (3.5-5.1); Alkaline Phosphatase 82 U/L (38-126); Anion Gap 9 mmol/L (4-12); Aspartate Amino Transferase 35 U/L (17-59); Bilirubin,Total 0.2 mg/dL (0.2-1.3); Blood Urea Nitrogen 19 mg/dL (9-20); CRP 21.8 mg/dL (<1.0); Calcium 8.6 mg/dL (8.4-10.2); Carbon Dioxide 24 mmol/L (22-30); Chloride 109 mmol/L (98-107); Estimated CRCL calculation 94 ml/min; Estimated Glomerular Filt Rate > 60; Glucose 87 mg/dL (65-110); NT Pro B Type Natriuretic Pept 995 pg/mL (19.9-100); Sodium 142 mmol/L (137-145); Total Protein 6.2 g/dL (6.3-8.2)
[2025-04-01 06:58] LABS: Erythrocyte Sedimentation Rate 129 mm/hr (0-20)
[2025-04-01 08:00] VITALS: BP 133/70; PULSE 105; PULSE 97; RESP 18; TEMP 36.4; O2SAT 95
[2025-04-01] MEDS: ENOXAPARIN 40 MG/0.4 ML SYRINGE SUB-Q (09:06)
[2025-04-01] MEDS: DOXYCYCLINE 100 MG/NS 100 ML 100 MG/100 ML BAG IVPB (09:06)
[2025-04-01 10:02] LABS: Influenza A QL RT-PCR Negative (Negative); Influenza B QL RT-PCR Negative (Negative); RSV RNA, RT-PCR Negative (Negative); SARS-CoV-2 RNA PCR Negative (Negative)
--- NOTE | 2025-04-01 11:11 | P.CONCA_ITS ---
Assessment and Plan Assessment and plan (1) Pleural effusion: Code(s): J90 - Pleural effusion, not elsewhere classified Status: Acute Assessment and Plan: Related to pneumonia. Antibiotic and other management per hospitalist. (2) Elevated brain natriuretic peptide (BNP) level: Code(s): R79.89 - Other specified abnormal findings of blood chemistry Status: Acute Assessment and Plan: Most likely secondary to pulmonary infection with pneumonia. Not a indication/diagnostic measure for decompensated heart failure in a situation of no clinical suspicion for CHF. Echo has been ordered and will be reviewed but suspicion is low for any underlying cardiac pathology. History of Present Illness History of Present Illness Consult date/time: 04/01/25 11:11 Requesting physician: Kirk Silva APRN Consult reason: Other (elevated BNP, pleural effusion) Reason For Visit: Pleural effusions Narrative: Surya Terry is a 29 year old male with history of asthma but no other significant medical history. This is a healthy young male who exercises regularly and follows a healthy diet and lifestyle. He comes to the hospital because of shortness of breath, cough, and fever. He is being treated for pneumonia. Cardiology is consulted because of elevated BNP, pleural effusion, and cardiomegaly. Prior to developing his recent URI symptoms he does not report ever having shortness of breath. He denies chest pain, swelling, palpitations. He does not have a family history of cardiac problems. Denies illicit drug and alcohol use. He is feeling better this morning - only complaint currently is cough. He is anxious. Review of Systems 2 Review of Systems: All systems reviewed & are unremarkable except as noted in HPI and below PMFSH Past Medical History Medical History Asthma Surgical History Surgical History H/O parathyroidectomy Social History Social History Smoking status: Never smoker Alcohol intake: current Substance use: never Do You Feel Safe in your Home?: Yes Lack of Transportation: No Lack of Food: Never True Current Housing: I Have Housing Concerned About Future Housing: No Difficulty Paying Gas/Electric Bills: No Difficulty Paying for Meds: No Currently Unemployed: No Education: Bachelor's Degree Difficulty w/ Childcare or Family Care: No Spiritual care concerns: No Meds Home Medications and Allergies Home Medications ?Medication ?Instructions ?Recorded ?Confirmed ?Type albuterol sulfate 90 mcg/actuation 2 inh inhalation Q6H PRN shortness 04/01/25 04/01/25 History aerosol inhaler of breath or wheezing azithromycin 250 mg tablet 250 mg PO DAILY 04/01/25 04/01/25 History prednisone 20 mg tablet 40 mg PO DAILY 04/01/25 04/01/25 History Allergies Allergy/AdvReac Type Severity Reaction Status Date / Time No Known Allergies Allergy Verified 03/31/25 18:08 Vital Signs Vital Signs - 24 hr 03/31/25 16:52 03/31/25 18:07 03/31/25 18:15 Temperature 36.8 C Pulse Rate 113 H 128 H 124 H Respiratory Rate 20 20 22 H Blood Pressure 126/79 Pulse Oximetry 100 98 Oxygen Delivery Room Air 03/31/25 18:30 03/31/25 18:36 03/31/25 18:45 Temperature Pulse Rate 111 H 116 H 105 H Respiratory Rate 22 H 30 H 17 Blood Pressure Pulse Oximetry 96 99 Oxygen Delivery 03/31/25 18:47 03/31/25 19:00 03/31/25 19:30 Temperature Pulse Rate 113 H 116 H 134 H Respiratory Rate 22 H 25 H 23 H Blood Pressure Pulse Oximetry 95 81 L Oxygen Delivery 03/31/25 20:17 03/31/25 20:32 03/31/25 20:39 Temperature Pulse Rate 122 H 117 H Respiratory Rate 21 H 23 H Blood Pressure 136/72 Pulse Oximetry 99 98 97 Oxygen Delivery 03/31/25 20:45 03/31/25 21:00 03/31/25 21:01 Temperature Pulse Rate 123 H 112 H 115 H Respiratory Rate 25 H 13 14 Blood Pressure 136/81 Pulse Oximetry 96 99 98 Oxygen Delivery 03/31/25 21:15 03/31/25 21:30 03/31/25 21:40 Temperature Pulse Rate 117 H 112 H 112 H Respiratory Rate 26 H 22 H 23 H Blood Pressure 131/84 141/71 H Pulse Oximetry 97 96 98 Oxygen Delivery 03/31/25 21:45 03/31/25 22:00 04/01/25 00:00 Temperature 36.6 C Pulse Rate 125 H 94 96 Respiratory Rate 26 H 19 16 Blood Pressure 146/79 H 136/77 Pulse Oximetry 99 97 100 Oxygen Delivery 04/01/25 00:04 04/01/25 00:08 04/01/25 04:00 Temperature Pulse Rate 112 H 78 Respiratory Rate Blood Pressure Pulse Oximetry Oxygen Delivery Room Air 04/01/25 08:00 Temperature 36.4 C Pulse Rate 97 Respiratory Rate 18 Blood Pressure 133/70 Pulse Oximetry 95 Oxygen Delivery Exam 2 Const: General: comfortable, no acute distress, alert and awake O rientation/consciousness: patient oriented x3 HENMT: Head: normal to inspection Eyes: General: appearance normal, both eyes and all related structures P upils: Equal, round and reactive pupils present Neck: Neck: normal visual inspection, supple and no JVD Carotids: normal carotid upstroke Resp: Effort & Inspection: normal respiratory effort Auscultation: clear to auscultation bilaterally Cardio: Rate: regular rate Rhythm: regular rhythm Heart sounds: S1 normal heart sound present, S2 normal heart sound present and no murmurs GI: Auscultation: normal bowel sounds Skin: General skin exam: normal color Neuro: General: patient oriented x3 Cranial nerves: Yes Equal, round and reactive pupils present Extrem: General: normal to inspection Psych: Appearance: grossly normal Mental Status: mental status grossly normal Results Labs and Meds 04/01/25 05:11 04/01/25 05:11 Lab results: Cardiac Enzymes 03/31/25 04/01/25 Range/Units 18:26 05:11 AST 44 35 (17-59) U/L Troponin I < 0.012 (0.000-0.034) ng/mL Coagulation 03/31/25 Range/Units 18:26 PT 15.3 H (11.1-14.7) Seconds APTT 30.8 (22.3-36.8) Seconds CBC 03/31/25 04/01/25 Range/Units 18:26 05:11 WBC 15.6 H 10.8 H (4.5-10.0) K/mm3 RBC 3.96 L 3.46 L (4.6-6.20) M/mm3 Hgb 11.9 L 10.3 L (14.0-18.0) g/dL Hct 35.8 L 31.8 L (42.0-52.0) % Plt Count 408 H 355 (150-375) k/mm3 Lymph # (Auto) 1.65 2.59 (0.9-3.2) K/mm3 [place] # (Auto) 1.4 H 1.1 H (0.1-0.6) K/mm3 Eos # (Auto) 0.0 0.1 (0-0.3) K/mm3 Baso # (Auto) 0.0 0.1 (0.0-0.1) K/mm3 Comprehensive Metabolic Panel 03/31/25 04/01/25 Range/Units 18:26 05:11 Sodium 142 142 (137-145) mmol/L Potassium 4.1 4.0 (3.4-5.0) mmol/L Chloride 109 H 109 H (98-107) mmol/L Carbon Dioxide 22 24 (22-30) mmol/L BUN 23 H 19 (9-20) mg/dL Creatinine 1.10 1.06 (0.7-1.3) mg/dL Glucose 118 H 87 (65-110) mg/dL Calcium 9.1 8.6 (8.4-10.2) mg/dL AST 44 35 (17-59) U/L ALT 55 H 44 (6-50) U/L Alkaline Phosphatase 105 82 (38-126) U/L Total Protein 7.7 6.2 L (6.3-8.2) g/dL Albumin 3.9 3.1 L (3.5-5.1) g/dL Intake and Output 03/31/25 04/01/25 04/01/25 23:59 07:59 15:59 Intake Total 2150 220 Balance 2150 220 Intake: IV 2150 100 Sodium Chloride 0.9% IV 1,000 2000 ml @ 999 mls/hr IV CONT .Q1H1M STA Rx#:[id number] Doxycycline 100 mg/Ns 100 ml 100 100 100 mg In 100 ml @ 100 mls/hr IVPB Q12H ELIZABETH Rx#:[id number] cefTRIAXone 1 GM/NS 50 ML 1 gm 50 In 50 ml @ 100 mls/hr IVPB ONCE STA Rx#:[id number] Oral 120
[2025-04-01 12:00] VITALS: PULSE 88
[2025-04-01] MEDS: hydrOXYzine HCL 12.5 MG TABLET PO (13:35)
[2025-04-01] MEDS: ALPRAZolam (*CRX) 0.25 MG TABLET PO (14:23)
[2025-04-01 15:21] LABS: Trichomonas Vag PCR NOT DETECTED (NOT DETECTE)
[2025-04-01 15:43] LABS: Chlamydia trachomatis NOT DETECTED (NOT DETECTE); Neisseria gonorrhoeae PCR NOT DETECTED (NOT DETECTE)
--- NOTE | 2025-04-01 15:49 | P.SS_ITS ---
Same Day Admit/Disch: HPI History of Present Illness Chief complaint: Pleural effusions Narrative: Surya Terry is a 29 year old male with past medical history of asthma, allergies, anxiety, and parathyroidectomy in 2021 presents to the hospital for cough and shortness of breath. Patient states that he will have issues with allergies that exacerbate his asthma around this time of year. He notes that his asthma is exacerbated by rain, smoke, and mowing the grass. All of which the patient has done or been around recently. He noticed feeling a bit short of breath and a dry cough about a week or so ago. He had been using his inhaler and Flonase with minimal improvement. He then went camping with friends over the weekend which further exacerbated his symptoms. He then developed a fever of 100.3 and body aches which led him to go to the urgent care where he was prescribed a z hallie and prednisone. He was unable to get an xray during the urgent care visit but returned the following day and was told to go the hospital for cardiac enlargement and pleural effusion. Patient has no cardiac history and denies family history of cardiac issues especially at a young age. He denies orthopnea and lower extremity edema. He denies any tick bites or rashes. He has no history of autoimmune disease. Patient endorses increased anxiety since being admitted. He states that his shortness of breath has much improved. He denies any chest pain, palpitations, nausea/vomiting, and abdominal pain. ED workup: CBC with WBC 15.6, H/H 11.9/35.8, and PLT 408. PT/INR 15.3/1.2. CMP with Na 142, K 4.1, CO2 22, BUN/Cr 23/1.1. Lactic acid and procal WNL. CRP 35.1 and sedimentation 129. Troponin WNL. UA unremarkable. Chest XR showed left basal atelectasis vs pneumonia. Chest CTA showed no PE or thoracic aortic dissection, small bilateral pleural effusion, left greater than right with bibasilar atelectasis. Repeat CXR showed airspace opacity in the right middle lobe may represent atelectasis, scarring versus pneumonia and a small left pleural effusion. Mild perihilar bronchial wall thickening suggestive of bronchiolitis. Echo showed LVEF 55-60% with bilateral atrial enlargement. [facility] Past Medical History Medical History (Updated 04/01/25 @ 15:53 by Laila Villalobos PA-C) Allergies Asthma Surgical History Surgical History H/O parathyroidectomy Social History Social History (Updated 04/01/25 @ 15:49 by Laila Villalobos PA-C) Social History: Lives at home with . Has a dog and a cat. Smoking status: Never smoker Alcohol intake: current Substance use: never Do You Feel Safe in your Home?: Yes Lack of Transportation: No Lack of Food: Never True Current Housing: I Have Housing Concerned About Future Housing: No Difficulty Paying Gas/Electric Bills: No Difficulty Paying for Meds: No Currently Unemployed: No Education: Bachelor's Degree Difficulty w/ Childcare or Family Care: No Spiritual care concerns: No Same Day Admit/Disch: Med Pre-admit Medications Home Medications ?Medication ?Instructions ?Recorded ?Confirmed ?Type albuterol sulfate 90 mcg/actuation 2 inh inhalation Q6H PRN shortness 04/01/25 04/01/25 History aerosol inhaler of breath or wheezing amoxicillin 875 mg-potassium 1 tablet PO Q12H #12 tabs 04/01/25 Rx clavulanate 125 mg tablet doxycycline hyclate 100 mg tablet 100 mg PO BID #10 tabs 04/01/25 Rx prednisone 20 mg tablet 40 mg PO DAILY 04/01/25 04/01/25 History Review of Systems Review of Systems All systems reviewed & are unremarkable except as noted in HPI and below Exam Narrative: AF HR 88 RR 18 SpO2 95 BP 133/70 General: well nourished, well-developed male in no acute respiratory distress who is nontoxic appearing, pacing throughout the room HEENT: Normocephalic. Atraumatic. Extraocular movement intact. Sclera clear and anicteric. No facial asymmetry. Neck: Neck was supple. No dominant adenopathy, thyromegaly or masses. Scar from prior parathyroidectomy. Chest: Lungs are clear to auscultation bilaterally. No wheezes or crackles. CV: Heart was regular rate and rhythm. S1/S2. No murmurs, gallops, or rubs. Abd: Abdomen was soft. Nontender. Nondistended. Positive bowel sounds. Ext: No clubbing, cyanosis, or edema. 2+ DP pulses bilaterally. Neuro: Patient is alert and oriented x4. Strength is 5/5 in both upper and lower extremities. Speech is clear. Psych: Patient is extremely anxious. Returned to patients room to discuss discharge. He is now very calm sitting in his chair with family at bedside. Does not appear in acute respiratory distress. DS: Data Data Completed and Pending Completed studies during hospitalization: chest xr chest cta chest xr Labs on day of discharge: Labs from last 24 hours 04/01/25 04/01/25 04/01/25 11:39 09:14 05:11 WBC 10.8 H RBC 3.46 L Hgb 10.3 L Hct 31.8 L MCV 91.9 MCH 29.8 MCHC 32.4 RDW 12.4 Plt Count 355 MPV 9.6 Immature Gran % (Auto) 0.7 H Neut % (Auto) 63.3 Lymph % (Auto) 24.0 Osborne % (Auto) 10.3 H Eos % (Auto) 1.1 Baso % (Auto) 0.6 Lymph # (Auto) 2.59 Osborne # (Auto) 1.1 H Eos # (Auto) 0.1 Baso # (Auto) 0.1 Abs Immat Gran (auto) 0.08 H Absolute Neuts (auto) 6.8 H Absolute Nucleated RBC 0.000 Nucleated RBC % 0.0 ESR 129 H PT INR APTT D-Dimer Sodium 142 Potassium 4.0 Chloride 109 H Carbon Dioxide 24 Anion Gap 9 BUN 19 Creatinine 1.06 Estim Creat Clear Calc 94 Estimated GFR > 60 Glucose 87 Lactic Acid Calcium 8.6 Magnesium Total Bilirubin 0.2 AST 35 ALT 44 Alkaline Phosphatase 82 Troponin I C-Reactive Protein 21.8 H NT-Pro-B Natriuret Pep 995 H Total Protein 6.2 L Albumin 3.1 L Procalcitonin 0.4 TSH (Reflex) Free T4 Total T3 Urine Color Urine Appearance Urine pH Ur Specific [place] Urine Protein Urine Glucose (UA) Urine Ketones Ur Blood (Man) Urine Nitrate Urine Bilirubin Urine Urobilinogen Leukocyte Esterase Rfl Urine RBC Urine WBC Ur Squamous Epith Cells Urine Bacteria Urine Casts Urine Opiates Screen Pending Urine Methadone Screen Pending Ur Barbiturates Screen Pending Ur Phencyclidine Scrn Pending Ur Amphetamine Screen Pending U Benzodiazepines Scrn Pending Urine Cocaine Screen Pending U Cannabinoids Screen Pending C. trachomatis (PCR) Not detected Influenza A (RT-PCR) Negative Influenza B (RT-PCR) Negative N. gonorrhoeae (PCR) Not detected RSV (RT-PCR) Negative SARS-CoV-2 RNA (RT-PCR) Negative T. vaginalis (PCR) Not detected 03/31/25 03/31/25 03/31/25 21:40 19:57 18:26 WBC 15.6 H RBC 3.96 L Hgb 11.9 L Hct 35.8 L MCV 90.4 MCH 30.1 MCHC 33.2 RDW 12.2 Plt Count 408 H MPV 9.3 Immature Gran % (Auto) 0.8 H Neut % (Auto) 79.8 H Lymph % (Auto) 10.6 L Osborne % (Auto) 8.7 H Eos % (Auto) 0.0 Baso % (Auto) 0.1 L Lymph # (Auto) 1.65 Osborne # (Auto) 1.4 H Eos # (Auto) 0.0 Baso # (Auto) 0.0 Abs Immat Gran (auto) 0.12 H Absolute Neuts (auto) 12.5 H Absolute Nucleated RBC 0.000 Nucleated RBC % 0.0 ESR 73 H PT 15.3 H INR 1.2 APTT 30.8 D-Dimer 5.13 H Sodium 142 Potassium 4.1 Chloride 109 H Carbon Dioxide 22 Anion Gap 11 BUN 23 H Creatinine 1.10 Estim Creat Clear Calc 91 Estimated GFR > 60 Glucose 118 H Lactic Acid 1.0 Calcium 9.1 Magnesium 2.1 Total Bilirubin 0.4 AST 44 ALT 55 H Alkaline Phosphatase 105 Troponin I < 0.012 C-Reactive Protein 35.1 H NT-Pro-B Natriuret Pep 1220 H Total Protein 7.7 Albumin 3.9 Procalcitonin 0.4 TSH (Reflex) 0.443 L Free T4 1.85 Total T3 0.90 Urine Color Yellow Urine Appearance Clear Urine pH 6.5 Ur Specific [place] > 1.045 H Urine Protein Trace Urine Glucose (UA) Negative Urine Ketones Negative Ur Blood (Man) Negative Urine Nitrate Negative Urine Bilirubin Negative Urine Urobilinogen 0.2 Leukocyte Esterase Rfl Negative Urine RBC 0-2 Urine WBC 0-5 Ur Squamous Epith Cells None seen Urine Bacteria None seen Urine Casts 0-2 Urine Opiates Screen Urine Methadone Screen Ur Barbiturates Screen Ur Phencyclidine Scrn Ur Amphetamine Screen U Benzodiazepines Scrn Urine Cocaine Screen U Cannabinoids Screen C. trachomatis (PCR) Influenza A (RT-PCR) Influenza B (RT-PCR) N. gonorrhoeae (PCR) RSV (RT-PCR) SARS-CoV-2 RNA (RT-PCR) T. vaginalis (PCR) DS: Summary Hospital Course Reason for hospitalization: pneumonia pleural effusion elevated bnp Hospital Course: Surya Terry is a 29 year old male with past medical history of asthma, allergies, anxiety, and parathyroidectomy in 2021 presents to the hospital for cough and shortness of breath. Not meeting sepsis criteria on admission. Lactic acid and procal WNL. CRP 35.1 and sedimentation 129. Troponin WNL. Chest XR showed left basal atelectasis vs pneumonia. Patient started on IV antibiotics for pneumonia coverage, transitioned to orals to complete the course at time of discharge. During admission patient was short of breath and tachycardic. Chest CTA obtained to rule out PE. Chest CTA showed no PE or thoracic aortic dissection, small bilateral pleural effusion, left greater than right with bibasilar atelectasis. Repeat CXR showed airspace opacity in the right middle lobe may represent atelectasis, scarring versus pneumonia and a small left pleural effusion. Mild perihilar bronchial wall thickening suggestive of bronchiolitis. Echo showed LVEF 55-60% with bilateral atrial enlargement. Given atrial enlargement and elevated bnp cardiology was consulted. Per cardiology the pleural effusion and BNP is likely elevated secondary to pneumonia. They also note that the enlarged heart is a normal variant in a young athletic person with some volume overload as patient does not have any symptoms concerning for heart failure or ASD/PFO. No further cardiac workup indicated. Patient has no co mplaints at time of discharge denying chest pain, palpitations, nausea/vomiting, and abdominal pain. He states that the shortness of breath has much improved. He is in agreement with discharge at this time. Patient discharged home with family in a stable condition. He is to follow up with PCP in 1 week. Status at Discharge Functional status at discharge: independent ambulation Time Spent with Patient Time attestation: Total time spent providing and/or coordinating discharge services: Time spent: Greater than 30 minutes DS: Admitting Diagnosis Discharge Date 04/01/2025 Admitting Diagnosis pneumonia pleural effusion elevated BNP DS: Discharge Diagnosis Discharge Diagnosis (1) Pneumonia: Code(s): J18.9 - Pneumonia, unspecified organism Status: Acute (2) Pleural effusion: Code(s): J90 - Pleural effusion, not elsewhere classified Status: Acute (3) Elevated brain natriuretic peptide (BNP) level: Code(s): R79.89 - Other specified abnormal findings of blood chemistry Status: Acute Discharge Plan Discharge Attending physician on discharge: Kadeem Rosen Consulting providers: Laila Villalobos; Chava Rossi Discharging Clinician: Laila Villalobos Anticipated Discharge Date/Time: 04/01/25 15:41 Patient Disposition: Home Activity: as tolerated Diet: as tolerated Discharge Instructions: Discharge disposition: Patient admitted to the hospital for shortness of breath Diagnosed with pneumonia likely further exacerbated by chronic asthma Take medications as prescribed Continue prednisone as previously prescribed Started on doxycycline and Augmentin Attached is information on these medications Follow up with PCP in 1-2 weeks, if unable to follow up with your new PCP can follow up with Dr. Hirsch the consumer experience consultant PCP at [place]. During admission patient was noted to have imaging that was slightly concerning for an enlarged heart Evaluated by Cardiology and no further intervention required Take caution while standing, rising, or moving Change positions slowly taking a break between each position change If you standing feel dizzy sit back down and take a break Encouraged to continue with yearly vaccinations Return to the emergency department if he developed sudden shortness of breath, chest pain, nausea, vomiting, upset stomach or intractable diarrhea Return to the emergency department if you develop fever greater than 101.5 Follow-up with the primary care physician within 1-2 weeks Thank you for choosing [facility] for your healthcare needs Patient Instructions: Antibiotic Form, Doxycycline (By mouth), Prednisone (By mouth), Amoxicillin/Clavulanate Potassium (By mouth), Asthma (DC), Allergies (ED), Pneumonia (DC) Patient Language: Paraguayan Stand Alone Forms: General Discharge Information Follow-up/Referrals: Karan Romo MD [Primary Care Provider] - 1 Week Shabbir Hirsch MD [Physician] - Call for Appointment Discharge Medications: New amoxicillin-pot clavulanate 875-125 mg tablet 1 tablet PO Q12H Qty: 12 0RF doxycycline hyclate 100 mg tablet 100 mg PO BID Qty: 10 0RF Continued albuterol sulfate 90 mcg/actuation HFA aerosol inhaler 2 inh INHALATION Q6H PRN (Reason: shortness of breath or wheezing) prednisone 20 mg tablet 40 mg PO DAILY Patient Comments: taken 2 of the 5 prescribed doses Discontinued azithromycin 250 mg tablet 250 mg PO DAILY Patient Comments: 2 tablets the first day then 1 for the next 4 Date of admission: 03/31/25 22:30 Primary Care Provider: Karan Romo Admitting Provider: Kadeem Rosen Attending physician on admission: Kadeem Rosen Condition: Stable Hospitalist MIPS Advance Care Plan I have confirmed that the patient's Advanced Care Plan is present, code status is documented, or surrogate decision maker is listed in patient medical record.: Yes Medication Reconciliation I have utilized all available resources to obtain, update and review the patients current medications (includes all prescriptions, OTC, herbals, cannabis, and nutritional supplements).: Yes Heart Failure (Exclusion) Patient has history of Heart Transplant or Left Ventricular Assistive Device?: No IF YES, STOP HERE Heart Failure (Qualifier) Patient has current or prior documentation of LVEF less than or equal to 40%, or mod/servere depressed LVSF?: No IF NO, STOP HERE
[2025-04-01 17:13] LABS: Amphetamine Screen Urine Negative (Negative); Barbiturate Screen Urine Negative (Negative); Benzodiazepines Screen Urine Negative (Negative); Cannabinoid Screen Urine Negative (Negative); Cocaine Screen Urine Negative (Negative); Methadone Screen Urine Negative (Negative); Opiate Screen Urine Negative (Negative); Phencyclidine Screen Urine Negative (Negative)
== END 2025-04-01 16:02 | disposition home or self-care (01) ==
LOC: ANHED 22:30 → ANH3MEDSUR 23:15 → ANH2MED 23:17
PROVIDERS: Nurse Practitioner; Student in an Organized Health Care Education/Training Program; Admitting Provider Internal Medicine; Emergency Provider Physician Assistant; PCP Emergency Medicine; Visit Provider Internal Medicine
DX: J18.9 Pneumonia, unspecified organism (principal); J91.8 Pleural effusion in other conditions classified elsewhere; E89.2 Postprocedural hypoparathyroidism; R79.89 Other specified abnormal findings of blood chemistry; J45.909 Unspecified asthma, uncomplicated; I51.7 Cardiomegaly; F41.9 Anxiety disorder, unspecified; Z20.822 Contact with and (suspected) exposure to COVID-19; Z79.51 Long term (current) use of inhaled steroids; Z79.899 Other long term (current) drug therapy
CPT/HCPCS: 36415; 71046; 71275; 80053; 80307; 81001; 83605; 83735; 83880; 84145; 84439; 84443; 84480; 84484; 85025; 85380; 85610; 85652; 85730; 86140; 87040; 87491; 87591; 87637; 87661; 93005; 93306; 94640; 96361; 96365; 96367; 96372; 96375; 99285; A9270; G0378; J0696; J1650; J2060; J7030; Q9967